=== PATIENT | female | born 1975 | race Two or more races ===

== ENCOUNTER 2020-01-25 00:04 | Emergency (ER) | payer MEDICAID ==
[~2020-01-25] VITALS: Ht 157.5 cm; Wt 63.5 kg
[2020-01-25 00:44] VITALS: BP 116/79
[2020-01-25 01:10] LABS: Urine Bacteria FEW /hpf (None Seen); Urine Blood Negative /uL (Negative); Urine Mucus FEW (None Seen); Urine Specific Gravity 1.025 (1.001-1.035); Urine WBC 2 /hpf (0 - 5)
== END 2020-01-25 04:03 | disposition left against medical advice (07) ==
LOC: ER 00:08
DX: R10.30 Lower abdominal pain, unspecified (principal); Z53.21 Procedure and treatment not carried out due to patient leaving prior to being seen by health care provider
CPT/HCPCS: 81001